=== PATIENT | male | born 1975 | race Caucasian/White ===

== ENCOUNTER → 2017-07-24 | Outpatient (CLI) | payer OTHER ==
--- NOTE | 2017-07-24 14:07 | XR ---
EXAMINATION TYPE: XR lumbar spine 2 or 3V DATE OF EXAM: 07/24/2017 CLINICAL HISTORY: Right-sided back pain after twisting injury TECHNIQUE: Frontal and lateral images of the lumbar spine are obtained. COMPARISON: None FINDINGS: There are 5 lumbar type vertebral bodies identified, however the T12 vertebral body is not ed to have hypoplastic ribs. Mild facet arthropathy is demonstrated at L4-L5 and L5-S1. The lumbar sp ine shows satisfactory alignment without evidence of acute fracture or dislocation. Vertebral body he ights and disk space heights are within normal limits. The overlying soft tissue appears unremarkable . IMPRESSION: 1. No acute fracture or malalignment is seen in the lumbar spine. 2. 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
== END | disposition home or self-care (01) ==
LOC: RADXRMAIN 11:42
PROVIDERS: ATTEND Emergency Medicine
DX: Q76.6 Other congenital malformations of ribs (principal); S39.012A Strain of muscle, fascia and tendon of lower back, initial encounter
CPT/HCPCS: 72100